=== PATIENT | female | born 2000 | race Caucasian/White ===

== ENCOUNTER 2019-11-11 11:32 | Emergency (ER) | payer BC, SELFPAY ==
[2019-11-11 11:40] VITALS: BP 120/77; PULSE 55; RESP 20; TEMP 36.6; O2SAT 100
[2019-11-11] MEDS: SODIUM CHLORIDE 0.9% IV 1,000 ML 999 ML IV CONT ×2 (12:04→13:31)
[2019-11-11 12:11] LABS: Basophils Percent Auto 0.2 % (0.2-1.2); Hematocrit 42.8 % (37.0-47.0); Hemoglobin 14.5 g/dL (12.0-15.0); Immature Granulocyte Absolute 0.03 K/mm3 (0.00-0.031); Immature Granulocyte Percent A 0.3 % (0-0.5); Lymphocytes Absolute Auto 1.71 K/mm3 (0.9-3.2); Lymphocytes Percent Auto 19.7 % (18.3-44.2); Mean Corpuscular HGB Conc 33.9 g/dl (32-36); Mean Corpuscular Hemoglobin 30.6 pg (26-34); Mean Corpuscular Volume 90.3 fl (80-100); Mean Platelet Volume 9.5 fl (7.4-10.4); Monocytes Absolute Auto 0.4 K/mm3 (0.1-0.6); Monocytes Percent Auto 4.5 % (2.6-8.5); Neutrophils Absolute Auto 6.6 K/mm3 (1.3-6.7); Neutrophils Percent Auto 75.3 % (45.5-73.1); Platelet Count Result 309 k/mm3 (150-375); Red Blood Count 4.74 M/mm3 (4.2-5.4); Red Cell Distribution Width 12.8 % (11.5-14.5); White Blood Count 8.7 K/mm3 (4.5-10.0)
[2019-11-11 12:24] LABS: Alanine Aminotransferase 14 U/L (4-35); Albumin Level 5.3 g/dL (3.5-5.1); Alkaline Phosphatase 74 U/L (38-126); Aspartate Amino Transferase 25 U/L (14-36); Bilirubin,Total 0.9 mg/dL (0.2-1.3); Blood Urea Nitrogen 13 mg/dL (7-17); Calcium 10.3 mg/dL (8.4-10.2); Carbon Dioxide 24 mmol/L (22-30); Chloride 101 mmol/L (98-107); Estimated CRCL calculation 81 ml/min; Estimated Glomerular Filt Rate > 60; Glucose 110 mg/dL (65-105); Lipase 108 U/L (23-300); Potassium 3.5 mmol/L (3.4-5.0); Sodium 136 mmol/L (137-145)
[2019-11-11] MEDS: FAMOTIDINE 20 MG/2 ML VIAL IV PUSH (13:08)
[2019-11-11] MEDS: ONDANSETRON INJ 4 MG/2 ML VIAL IV PUSH (13:08)
[2019-11-11] MEDS: LORAZEPAM INJ 2 MG/ML VIAL 1 MG IV PUSH (13:09)
[2019-11-11 13:27] LABS: Add Urine Microscopic? YES; Appearance Urine Clear (Clear); Bilirubin Urine Negative (Negative); Blood Urine 1+ (Negative); Color Urine Yellow (Yellow); Glucose Urine UA Negative (Negative); Ketones Urine 1+ mg/dL (Negative); Leukocyte Esterase Ur Negative LEU/UL (Negative); Mucus Urine Few /lpf; Nitrate Urine Negative (Negative); Protein Urine Negative (Negative); Specific Grav Ur 1.016 (1.001-1.035); Squamous Epithelial Cell Urine Rare /hpf (Few); WBC Urine 0-3 /hpf
--- NOTE | 2019-11-11 13:31 | ED.GENADULT ---
HPI - General Adult General Chief complaint: Abdominal Pain Stated complaint: ABD PAIN Time Seen by Provider: 11/11/19 11:35 Source: patient Mode of arrival: ambulatory Limitations: no limitations History of Present Illness HPI narrative: Patient is a 19-year-old female who presents to emergency department for evaluation of abdominal pain in the upper quadrants of the abdomen worse with p.o. intake for the last several days has had some intermittent nausea and vomiting. Patient notes similar occurrences in the past and was scheduled to see GI but has not done so yet. Patient started taking Pepcid again for symptoms with minimal improvement on arrival patient notes discomfort in the upper abdomen in the epigastric region. Related Data Allergies Allergy/AdvReac Type Severity Reaction Status Date / Time No Known Allergies Allergy Unverified 10/21/17 00:44 Review of Systems Review of Systems: All systems reviewed & are unremarkable except as noted in HPI and below PMFSH Social History Social History Gender identity (if verbalized by the patient): Female Exam Narrative: Exam Narrative: GENERAL: Well-appearing, well-nourished, and in no acute distress. HEAD: Normocephalic, atraumatic. EYES: PERRLA and EOMI. ENT: Nares clear, no rhinorrhea or epistaxis. Mucous membranes moist. CHEST: Clear to auscultation. No respiratory distress. No wheezes rales or rhonchi HEART: Regular rate and rhythm. No murmur heard. Normal peripheral pulses. ABDOMEN: Soft, nontender, nondistended EXTREMITIES: Normal range of motion. No edema. SKIN: Warm, dry, no rash. NEURO: No focal deficits. Alert and oriented x3. PSYCH: Normal mood and affect. Course Course Emergency Course: Patient in the room in no distress aware of case findings treatment plan and diagnosis with symptoms resolved felt appropriate for discharge home Vital Signs Vital signs: Vital Signs Temperature 97.8 F 11/11/19 11:40 Pulse Rate 55 L 11/11/19 11:40 Respiratory Rate 11/11/19 11:40 Blood Pressure 120/77 11/11/19 11:40 Pulse Oximetry 100 11/11/19 11:40 Temperature 97.8 F 11/11/19 11:40 Pulse Rate 55 L 11/11/19 11:40 Respiratory Rate 11/11/19 11:40 Blood Pressure 120/77 11/11/19 11:40 Pulse Oximetry 100 11/11/19 11:40 Medical Decision Making MDM Narrative Medical decision making narrative: Patient in the room in no distress aware of case findings treatment plan and diagnosis agreeing to follow-up as directed aware of case findings treatment plan and diagnosis afebrile nontoxic-appearing no distress. Patient will follow with GI specialist as instructed. Patient provided with reasons to return. Patient afebrile nontoxic-appearing no distress Vital Signs Vital Signs: Vital Signs Temperature 97.8 F 11/11/19 11:40 Pulse Rate 55 L 11/11/19 11:40 Respiratory Rate 11/11/19 11:40 Blood Pressure 120/77 11/11/19 11:40 Pulse Oximetry 100 11/11/19 11:40 Temperature 97.8 F 11/11/19 11:40 Pulse Rate 55 L 11/11/19 11:40 Respiratory Rate 11/11/19 11:40 Blood Pressure 120/77 11/11/19 11:40 Pulse Oximetry 100 11/11/19 11:40 Lab Data Result diagrams: 11/11/19 12:03 11/11/19 12:03 Labs: Lab Results 11/11/19 11/11/19 11/11/19 Range/Units 12:03 12:03 13:06 WBC 8.7 (4.5-10.0) K/mm3 RBC 4.74 (4.2-5.4) M/mm3 Hgb 14.5 (12.0-15.0) g/dL Hct 42.8 (37.0-47.0) % MCV 90.3 (80-100) fl MCH 30.6 (26-34) pg MCHC 33.9 (32-36) g/dl RDW 12.8 (11.5-14.5) % Plt Count 309 (150-375) k/mm3 MPV 9.5 (7.4-10.4) fl Immature Gran % (Auto) 0.3 (0-0.5) % Neut % (Auto) 75.3 H (45.5-73.1) % Lymph % (Auto) 19.7 (18.3-44.2) % [place] % (Auto) 4.5 (2.6-8.5) % Eos % (Auto) 0.0 (0-4.4) % Baso % (Auto) 0.2 (0.2-1.2) % Lymph # (Auto) 1.71 (0.9-3.2) K/mm3 [place]
[2019-11-11 14:46] VITALS: BP 117/65; PULSE 72; RESP 16; O2SAT 100
== END 2019-11-11 14:47 | disposition home or self-care (01) ==
PROVIDERS: Emergency Medicine Emergency Medical Services; Emergency Provider Emergency Medicine; PCP Pediatrics
DX: R10.9 Unspecified abdominal pain (principal)
CPT/HCPCS: 36415; 80053; 81001; 81025; 83690; 85025; 96361; 96374; 96375; 99284; J2060; J2405; J7030

== ENCOUNTER 2019-12-08 00:26 | Outpatient (CLI) | payer BC, SELFPAY ==
[2019-12-08 17:13] LABS: SARS-CoV-2 RNA PCR Negative
== END 2019-12-08 00:27 | disposition home or self-care (01) ==
LOC: ANHCOVIDDT 00:26
PROVIDERS: PCP Pediatrics; Visit Provider Internal Medicine Gastroenterology
DX: Z01.812 Encounter for preprocedural laboratory examination (principal); Z11.59 Encounter for screening for other viral diseases
CPT/HCPCS: 87635; C9803; U0003

== ENCOUNTER 2019-12-10 02:30 | Day surgery (SDC) | payer BC, SELFPAY ==
[2019-12-05 12:45] VITALS: BMI 20.3
[2019-12-10 09:32] VITALS: BP 98/66; PULSE 70; RESP 16; TEMP 36.6; O2SAT 100
--- NOTE | 2019-12-10 09:36 | WPDANESEPPF ---
Anes - Initial Pre Proc Eval Procedure: Operation Date: 12/10/19 10:30 Proposed Procedures p Esophagogastroduodenoscopy - Woo Velez MD Date/Time: 12/10/19 09:36 Surgeon: Woo Velez MD Pre Op Diagnosis: Epigastric Pain Patient Data Age: 19 Gender: F Height: 1.7 m Weight: 59 kg Allergies Allergy/AdvReac Type Severity Reaction Status Date / Time No Known Allergies Allergy Verified 12/10/19 09:31 Home Medications Medication Instructions Recorded Confirmed Type hydroxyzine pamoate [Vistaril] 25 mg PO QID PRN #7 cap 11/11/19 12/05/19 Rx hyoscyamine sulfate [Levsin] 0.125 mg PO TID PRN #10 tablet 11/11/19 12/05/19 Rx Patient hx anesthesia problems: none Family hx anesthesia problems: none [facility] Past Medical History Medical History (Updated 12/09/19 @ 09:11 by Shyam Robbins DO) Anxiety Social History Social History (Updated 12/10/19 @ 09:37 by Shyam Robbins DO) Tobacco type: e-cigarettes/vaping Substance use type: marijuana Last use: today 12/09 Gender identity (if verbalized by the patient): Female Anes - Eval Final PreProcedure Day of Procedure 12/10/19 09:36 Patient weight: normal Heart: regular rate and rhythm Lungs: clear to auscultation and normal air movement Airway: Mallampati scale class 1 Neurological: alert and oriented Last oral intake: >/= 8 hours ASA classification: II Emergent: no Anesthetic plan: proceed Anesthesia type and monitoring: general GIVS and standard monitoring Informed Consent: The patient's anesthetic plan and its attendant risks and benefits were discussed with the patient/family/POA. Questions were solicited and answers provided to the satisfaction of the patient/family/POA.
--- NOTE | 2019-12-10 09:43 | WPDGICN ---
Assessment and Plan Assessment and plan (1) Epigastric abdominal pain: Code(s): R10.13 - Epigastric pain Status: Acute Assessment and Plan: Patient has episodic recurrent epigastric pain. This been present for more than 1 year. Plan is to proceed with EGD. Additionally an ultrasound of the right upper quadrant be obtained. Further recommendations will be given after endoscopy. This is been poorly responsive to a trial of PPIs. (2) Anxiety: Code(s): F41.9 - Anxiety disorder, unspecified Status: Acute GI Consult Note Consult date/time: 12/10/19 09:43 HPI: Dionna Hairston is a 19 year old female Seen in evaluation at the request of Anai Magallon. Patient reports traveling to [place] 1 year ago. She subsequently she developed epigastric pain described as burning source she aid with belching. Symptoms have recurred often on symptoms often lasting weeks or months at a time when occurring. She denies any associated fever. She has noticed some mild improvement with Tums. Currently she takes omeprazole for the last 2-3 months with no change in symptoms. Past medical history is significant for some anxiety. Patient denies any weight loss. Review of Systems Review of Systems: All systems reviewed & are unremarkable except as noted in HPI and below PMFSH Past Medical History Medical History Anxiety Social History Social History Tobacco type: e-cigarettes/vaping Substance use type: marijuana Last use: today 12/09 Gender identity (if verbalized by the patient): Female Meds Home Medications and Allergies Home Medications Medication Instructions Recorded Confirmed Type hydroxyzine pamoate [Vistaril] 25 mg PO QID PRN #7 cap 11/11/19 12/05/19 Rx omeprazole 40 mg PO DAILY 12/10/19 12/10/19 History sertraline 25 mg PO DAILY 12/10/19 12/10/19 History Allergies Allergy/AdvReac Type Severity Reaction Status Date / Time No Known Allergies Allergy Verified 12/10/19 09:31 Vital Signs Vital Signs - 24 hr 12/10/19 09:32 Temperature 36.6 C Pulse Rate 70 Respiratory Rate 16 Blood Pressure 98/66 L Pulse Oximetry 100 Exam Narrative: Exam Narrative: Physical exam reveals patient to be alert. Vital signs stable. HEENT exam unremarkable. Lungs are clear to auscultation and percussion. Heart is without murmur or extra sounds. Abdominal exam bowel sounds present soft nontender with no hepatosplenomegaly. Digital external rectal exam deferred at this time.
[2019-12-10] MEDS: LACTATED RINGERS 1,000 ML 150 ML IV CONT (09:52)
[2019-12-10 10:55] VITALS: BP 84/53; PULSE 67; RESP 25; O2SAT 100
[2019-12-10 11:05] VITALS: BP 100/61; PULSE 67; RESP 25; O2SAT 100
[2019-12-10 11:23] VITALS: BP 102/68; PULSE 67; RESP 25; O2SAT 100
== END 2019-12-10 11:35 | disposition home or self-care (01) ==
PROVIDERS: PCP Pediatrics; Visit Provider Internal Medicine Gastroenterology
PROC: 0DJ08ZZ Inspection of Upper Intestinal Tract, Via Natural or Artificial Opening Endoscopic (ICD-10-PCS; CPT 43235; principal; 2019-12-10 10:30)
DX: R10.13 Epigastric pain (principal); F41.9 Anxiety disorder, unspecified; F17.290 Nicotine dependence, other tobacco product, uncomplicated; F12.90 Cannabis use, unspecified, uncomplicated
CPT/HCPCS: 43239; 87081; J2704; J7120

== ENCOUNTER 2019-12-15 07:52 | Outpatient (CLI) | payer BC, SELFPAY ==
--- NOTE | ~2019-12-15 | US_ITS ---
EXAMINATION: US right upper quadrant EXAM DATE: 12/15/2019 08:59 INDICATION: Epigastric pain. TECHNIQUE: Multiple grayscale and Doppler images of the abdomen right upper quadrant were obtained (nilda y a technologist who performed the scan) and subsequently reviewed. Comparison is made to prior exami nation from 02/13/2019. FINDINGS: The pancreatic head and body are normal in appearance. The pancreatic tail is not visualized. The l iver has normal echogenicity and contour. There are no focal liver lesions identified. There is no evidence of intrahepatic biliary duct dilation. Portal venous flow was seen in the hepatopedal, nor mal direction and has normal Doppler waveform. No right-sided hydronephrosis. Common bile duct measures 2 mm, which is normal. The gallbladder wall is normal in thickness, with ex pected amount of distention. No sonographic evidence of pericholecystic fluid. There is no cholelit hiases. Technologist performing exam reports patient did not demonstrate sonographic Andres's sign. Please note that this sign is less reliable in patients who have received pain medication. IMPRESSION: 1. Unremarkable abdominal ultrasound exam. Reviewed, dictated and finalized at location B.
== END 2019-12-15 07:53 | disposition home or self-care (01) ==
PROVIDERS: PCP Pediatrics; Visit Provider Internal Medicine Gastroenterology
DX: R10.13 Epigastric pain (principal)
CPT/HCPCS: 76705

== ENCOUNTER 2019-12-29 07:59 | Outpatient (CLI) | payer BC, SELFPAY ==
--- NOTE | ~2019-12-29 | XR_ITS ---
XR small bowel follow through DATE: 12/29/2019 10:36 INDICATION: Nausea and vomiting TECHNIQUE: Serial images of the abdomen were obtained after oral ingestion of barium. Spot images of the terminal ileum area. COMPARISON: None FINDINGS: There is normal transit of contrast material through the small bowel, contrast material cesilia esteban the colon within 1.5 hours. No stricture, mucosal fold thickening, ulceration, diverticulum or intraluminal mass lesion of the small bowel is evident. The terminal ileum area appears unremarkable. IMPRESSION: Normal examination Reviewed, dictated and finalized at Location A. Reviewed, dictated and finalized at location A. IMPRESSION: Normal examination
== END 2019-12-29 08:00 | disposition home or self-care (01) ==
PROVIDERS: PCP Pediatrics; Visit Provider Internal Medicine Gastroenterology
DX: R11.2 Nausea with vomiting, unspecified (principal)
CPT/HCPCS: 74250

== ENCOUNTER 2025-04-29 09:54 | Emergency (ER) | payer OTHER, BC, MEDICAID, SELFPAY ==
--- OUTSIDE RECORDS SUMMARY | 2025-02-13 03:45 | XMS_ITS ---
Author Organization [facility] [facility] Address [facility] [address] [facility] [address] [place] [address] Care Team Providers Care Exhibit Preparator Name Role Phone Clarice Peter Primary Care Provider Anai Bailey Unavailable [phone] REASON FOR VISIT Pt has a family emergency Social History Sex Assigned At : Social History Observation Description Sex Assigned At Female Encounters Encounter Location Date Provider Diagnosis [facility] [employer] [place] [address] [address] [facility] [address] [place] [address] 02/13/2025 Anai Arias Plan Of Treatment Next Appt Details Provider Name:Anai Arias , 05/01/2025 11:15:00 AM, [facility] [address] [facility] [address], [place], [address], Progress Notes * MORGAN KIMDOB: [birth year] (25 yo F)Acc No.[id number]:02/13/2025 Patient: Cuca DominguezLITOMORGAN Enrique Provider: CHLOE PINTO :2000 A ge:25 Y S ex:Female Date:02/13/2025 Phone: Address:[address] [place] [id number] Pcp:Clarice JHA Subjective: * Chief Complaints: * P t has a family emergency * Electronic signature of CHLOE Cordova on 04/29/2025 at 10:54 AM BURLAP BAG SEWER Sign off status: Pending * Provider: CHLOE PINTO Date: 0 02/13/2025 Generated for Howard kowalski/Felton/eTransmitting on: 1 06/29/2024 10:54 AM BURLAP BAG SEWER
--- OUTSIDE RECORDS SUMMARY | 2025-04-21 05:15 | XMS_ITS ---
Author Organization [facility] [employer] [facility] Address [facility] [address] [facility] [address] [place] [address] Care Team Providers Care Women'S Studies Lecturer Name Role Phone Clarice Peter Primary Care Provider Anai Bailey Unavailable [phone] REASON FOR VISIT Follow Up Social History Sex Assigned At : Social History Observation Description Sex Assigned At Female Encounters Encounter Location Date Provider Diagnosis [facility] [place] [address] [address] [facility] [address] [place] [address] 04/21/2025 Anai Arias Plan Of Treatment Next Appt Details Provider Name:Anai Arias , 05/01/2025 11:15:00 AM, [address], [facility] [address], [place], [address], Progress Notes * MORGAN KIMDOB: [birth year] (25 yo F)Acc No.[id number]:04/21/2025 Patient: MORGAN LUKE Provider: CHLOE PINTO :2000 A ge:25 Y S ex:Female Date:04/21/2025 Phone: Address:[address] [place], [place] [phone] Pcp:Clarice JHA Subjective: * Chief Complaints: * F ollow Up * Electronic signature of CHLOE Cordova on 04/29/2025 at 10:54 AM AVIATION PROJECT MANAGER Sign off status: Pending * Provider: CHLOE PINTO Date: 06/21/2024 Generated for Howard kowalski/Felton/eTransmitting on: 06/29/2024 10:54 AM AVIATION PROJECT MANAGER
--- NOTE | ~2025-04-29 | XR_ITS ---
EXAMINATION: XR finger 3rd RT min 2V DATE: 04/29/2025 11:52 INDICATION: Dog bite TECHNIQUE: Right middle finger were obtained. COMPARISON: None. IMPRESSION: No fracture lucency or radiopaque foreign bodies seen; no gross acute or aggressive bony or soft tissue process seen. Reviewed, dictated and finalized at location A. P MEDICINE PHYSICIAN IMPRESSION: No fracture lucency or radiopaque foreign bodies seen; no gross acu te or aggressive bony or soft tissue process seen.
[2025-04-29 10:07] VITALS: BP 139/75; PULSE 121; RESP 18; TEMP 36.8; O2SAT 100
--- OUTSIDE RECORDS SUMMARY | 2025-04-29 10:54 | XMS_ITS | Patient Health Record ---
Author Organization [facility] [employer] Address [address] [facility] [address] [place] [address] Care Team Providers Care Manager Analysis Name Role Phone Clarice Peter Primary Care Provider Anai Bailey Unavailable [phone] Collin Neely Unavailable [phone] Allergies No Known Allergies Results Component Value Reference Range Flag Notes Illicits Reviewed date:08/15/2024 04:23:57 PM Interpretation: Performing Lab:[address] [place] [address], Director - [id number] Notes/Report: An exception occurred while processing this report and so it has incomplete data. Please contact [employer] for assistance. THCCOOH >600 15.0 POSITIVE Not Medicated Inconsistent PCP NEGATIVE 20.0 ng/mL Not Medicated Consistent MDMA NEGATIVE 50.0 ng/mL Not Medicated Consistent MDEA NEGATIVE 50.0 ng/mL Not Medicated Consistent MDA NEGATIVE 50.0 ng/mL Not Medicated Consistent Cocaine Metabolite NEGATIVE 20.0 ng/mL Not Me dicated Consistent 6-KENJI NEGATIVE 10.0 ng/mL Not Medicated Consistent PDF Report [id number]_[email or web address] [id number] UDT Reviewed date:08/11/2024 11:46:39 AM Interpretation: Performing Lab: Notes/Report: Amphetamine (AMP) N 0 - 1000 ng/ml Buprenorphine (BUP) N 0 - 10 ng/ml Oxazepam (BZO) N 0 - 300 ng/ml Cocaine (SIM) N 0 - 300 ng/ml Methamphetamine (mAMP) N 0 - 300 ng/ml Methylenedioxymethamphetamin e (MDMA) N 0 - 500 ng/ml Morphine (MOP) N 0 - 25 ng/ml Methadone (MTD) N 0 - 300 ng/ml Oxycodone (OXY) N 0 - 300 ng/ml THC P 0 - 50 ng/ml x N 0 - 1000 ng/ml x N 0 - 1000 ng/ml x N 0 - 300 ng/ml x N 0 - 300 ng/ml x N 0 - 300 ng/ml Reason For Referral No Information Medications Medication SIG (Take, Route, Frequency, Duration) Notes Start Date End Date Status Amitriptyline HCl 50 MG Tablet TAKE 1 TABLET BY MOUTH NIGHTLY AT BEDTIME. Oral; Duration: 30 days Active hydrOXYzine HCl 10 MG Tablet 1 tablet as needed Orally Once a day; Duration: 30 day(s) 02/19/2025 Active Zoloft 100 MG Tablet 1 tablet Orally Onc e a day; Duration: 90 days Active busPIRone HCl 5 MG Tablet 1 tablet Orall y 3 times a day; Duration: 90 days 05/20/2025 Active Nurtec 75 MG Tablet Disintegrating TAKE 1 TABLET (75 MG TOTAL) BY MOUTH EVERY OTHER DAY. MAX OF 1 TABLET (75 MG) IN 24 HOURS. Oral; Duration: 30 Days Active hydrOXYzine Pamoate 50 MG Capsule 1 capsule Orally three times a day; Duration: 30 days Active Social History Tobacco Use: Social History Observation Description Date Details (start date - stop date) Current Smoker NA - NA Sex Assigned At : Social History Observation Description Sex Assigned At Female Social History Miscellaneous: Social Info Question Answer Notes Advance Care Planning Are you your own decision-maker Yes Do you have Power of Spine Supervisor for Health or [facility]? No Social History Social Info Question Answer Notes Household: Marital Status: Single Number of Adults in household: 3 Level of Education: Finished High School Drug/Alcohol: Social Info Question Answer Notes Drugs Have you used drugs other than those for medical reasons in the past 12 months? Yes Methamphetamine? No Crack? No LSD? No Ecstacy? No Prescription opiates? No Marijuana? Yes Ketamine? No PCP? No Is there a minor (18 years or younger) at risk at home? No Are you still using? Yes Do you want treatment? No AUDIT-C (Standard) Did you have a drink containing alcohol in the past year? 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) Marijuana use (F12.90) Active confirmed Problem Tobacco use (433605296) Vapes nicotine containing substance (Z72.0) Active confirmed Problem Hyperemesis (320342599) Hyperemesis (R11.10) Active confirmed Vital Signs Heart Rate 97 /min 02/19/2025 Respiratory Rate 20 /min 01/13/2025 Height-cm 172.72 cm 02/19/2025 Blood pressure diastolic 75 mm Hg 02/19/2025 Weight-kg 86.55 kg 02/19/2025 Height 68 in 02/19/2025 Blood pressure systolic 111 mm Hg 02/19/2025 Weight 190.8 lbs 02/19/2025 BMI 29.01 kg/m2 02/19/2025 Encounters Encounter Location Date Provider Diagnosis [facility], [place] [address] [facility] [address] [facility] [address] [place] [address] 08/11/2024 Collin Neely MARTA (generalized anxiety disorder) F41.1 ; Hyperemesis R11.10 ; Vapes nicotine containing substance Z72.0 and Marijuana use F12.90 [place] [address] [address] 01/13/2025 Anai Arias MARTA (generalized anxiety disorder) F41.1 ; Hyperemesis R11.10 ; Vapes nicotine containing substance Z72.0 and Marijuana use F12.90 [place] [address] [address] 02/19/2025 Anai Arias MARTA (generalized anxiety disorder) F41.1 ; Hyperemesis R11.10 ; Vapes nicotine containing substance Z72.0 and Marijuana use F12.90 Assessments Encounter Date Diagnosis (ICD Code) Assessment Notes Treatment Notes Treatment Clinical Notes Section Notes 08/11/2024 MARTA (generalized anxiety disorder) (ICD-10 - F41.1) 08/11/2024 Hyperemesis (ICD-10 - R11.10) 01/13/2025 MARTA (generalized anxiety disorder) (ICD-10 - F41.1) Generalized Anxiety Disorder: Care Instructions material was published, Learning About Generalized Anxiety Disorder material was published, Learning About Anxiety Disorders material was published Presently taking Zoloft 100 mg daily and Amitriptyline 50 mg (migraines) Vistaril 25 mg three times a day 1. Anxiety increase Vistaril 50 mg three times a day as needed- discuss and educated on may plan to decrease dose of Vistaril after Buspar is at therapuetic dose Zoloft 100 mg daily Add Buspar 5 mg three times a day educated on all rx 2. DEPRESSION Zoloft 100 mg daily refer to therapy- [facility] 3. vaping Smoking Education Do not smoke. Nicotine and other chemicals in cigarettes and cigars can cause lung damage. Ask your healthcare provider for information if you currently smoke and need help to quit. E-cigarettes or smokeless tobacco still contain nicotine. Talk to your healthcare provider before you use these products. education on decrease to stopping nicotine products and stop smoking hotline given -Quit - Yes [place] Tobacco Quitline Call a Smoking Quitline The National [facility] [place]'s Smoking Quitline, (0-436-77J-QUIT) Smokefree.gov, which connects you with your State's Quitline, (8-439-CHMVEYQ) Veterans Smoking Quitline, (6-646-YBQQUKR) 4. cannabis use with hyperemesis NO CONTROL SUBSTANCE PRESCRIBED BY [facility] Cannabis Use Education Recommend decrease/stop cannabis use as it can negatively impact mood, motivation, anxiety, sleep, focus/concentrati on/memory (vigilance, elasticity, processing and attention); can also contribute to development of psychosis. Recommend decrease/stop cannabis use as it may be negatively impacting mood, motivation, anxiety, sleep, focus; can also contribute to development of psychosis Cannabis/marijuan a information: http_s://nola.nih .gov/publications /drugfacts/cannab is-marijuana http_s://www.[employer]/gasper qoi-xul-wfzqtjgy- marijuana-adhd/ Suicide Safety plan Suicide Safety Plan Step 1: Warning Signs Yes Step 2: Internal Coping Strategies Yes Step 3: Social Contacts Who May Distract from the Crisis Yes Remember, in this step, the goal is distraction from suicidal thoughts and feelings. Yes Step 4 Professionals and Agencies to Contact for Help Yes 988 Suicide and Crisis Lifeline Yes Text HOME to 614191 Yes [place] [facility], Suicide & Crisis Hotline 0-839-100-HOPE(68 43) Yes [place] Suicide Prevention Lifeline 8335-811-QHFD (3878) Yes Step 5: Making the Environment Safe Yes Patient educated on all medications including potential benefits, side effects, risks. Educated on proper dosing schedule and importance of compliance educated on all medications, benefits, side effects and risk, and educated on depression, anxiety, and ADHD, mood d/o and educated on compliance of medications, metabolic and movement d/o education appointment's, continue therapy discussion with patient about course of treatment and patient instructions. education on serotonin syndrome Discussed and educated pt regarding benzodiazepines are generally not intended for prolonged use and that use can cause tolerance, dependence, depression, and associated memory issues including dementias (this list is not exhaustive). Benzodiazepine use is generally not recommended concurrently with pain medications and/or other controlled substances educated on all medications, benefits, side effects and risk, and educated on depression, anxiety, and ADHD, mood d/o and educated on compliance of medications, metabolic and movement d/o education appointment is, continue therapy discussion with patient about course of treatment and patient instructions. education on serotonin syndrome SSRI/SNRI side effects discussed including but not limited to, gastric upset, nausea, vomiting, diarrhea and/or constipation, weight changes, sexual side effects including loss of libido, increased suicidal thoughts/behavior s in children and young adults, and serotonin syndrome. Second generation antipsychotics (SGAs) have metabolic syndrome issues with weight gain, increase in prolactin, increased waist circumference, increased lipids, and increased glucose. Thus routine monitoring of weight, metabolic labs, etc. is indicated. A general rank ordering of antipsychotics that have the greatest to the least risk of metabolic effects is olanzapine, quetiapine, risperidone, ziprasidone, and aripiprazole. However, weight gain can occur with all of these drugs and considerable variability exists among patients receiving the same drug regarding the risk of metabolic effects. Anti-psychotic agents not only increase the risk of metabolic disorder, they also increase the risk of CVA, akathisia, and movement disorders including EPS or tardive dyskinesia (more common with first generation antipsychotics) and more. Sleep Hygeine- - KEEP YOUR BEDROOM DARK - GET LOTS OF NATURAL LIGHT IN THE MORNING. - DON'T WORK ON YOUR COMPUTER OR PHONE LATE AT NIGHT. - AVOID NAPS DURING THE DAY. - NO CAFFEINE 3 HOURS OR MORE AFTER WAKE UP TIME. - ONLY USE YOUR BED FOR SLEEPING - GET A RELAXATION ROUTINE BEFORE BED. - IF YOU CAN'T GET TO SLEEP AFTER 15 TO 30 MINUTES GET OUT OF BED AND DO SOMETHING RELAXING. - DON'T DRINK ALCOHOL IN THE EVENING or limit alcohol to 1 drink. Medication Management and Follow-Up - Plan: - Schedule follow-up appointments every 1-3 months to monitor the patient's response to the medication regimen. - Reinforce the importance of avoiding recreational drug use due to potential neurotoxicity and interactions with prescribed medications. 01/13/2025 Hyperemesis (ICD-10 - R11.10) Nausea and Vomiting: Care Instructions material was published Presently taking Zoloft 100 mg daily and Amitriptyline 50 mg (migraines) Vistaril 25 mg three times a day 1. Anxiety increase Vistaril 50 mg three times a day as needed- discuss and educated on may plan to decrease dose of Vistaril after Buspar is at therapuetic dose Zoloft 100 mg daily Add Buspar 5 mg three times a day educated on all rx 2. DEPRESSION Zoloft 100 mg daily refer to therapy- [facility] 3. vaping Smoking Education Do not smoke. Nicotine and other chemicals in cigarettes and cigars can cause lung damage. Ask your healthcare provider for information if you currently smoke and need help to quit. E-cigarettes or smokeless tobacco still contain nicotine. Talk to your healthcare provider before you use these products. education on decrease to stopping nicotine products and stop smoking hotline given Quit - Yes [place] Tobacco Quitline Call a Smoking Quitline The National Cancer [place]'s Smoking Quitline, (3-869-66B-QUIT) Smokefree.gov, which connects you with your State's Quitline, (5-841-WVOZPMF) Veterans Smoking Quitline, (7-001-OCLFZJL) 4. cannabis use with hyperemesis NO CONTROL SUBSTANCE PRESCRIBED BY [facility] Cannabis Use Education Recommend decrease/stop cannabis use as it can negatively impact mood, motivation, anxiety, sleep, focus/concentrati on/memory (vigilance, elasticity, processing and attention); can also contribute to development of psychosis. Recommend decrease/stop cannabis use as it may be negatively impacting mood, motivation, anxiety, sleep, focus; can also contribute to development of psychosis Cannabis/marijuan a information: http_s://nola.nih .gov/publications /drugfacts/cannab is-marijuana http_s://www.GreenWatt/canna nlx-tcb-thfatfhc- marijuana-adhd/ Suicide Safety plan Suicide Safety Plan Step 1: Warning Signs Yes Step 2: Internal Coping Strategies Yes Step 3: Social Contacts Who May Distract from the Crisis Yes Remember, in this step, the goal is distraction from suicidal thoughts and feelings. Yes Step 4 Professionals and Agencies to Contact for Help Yes 220 Suicide and Crisis Lifeline Yes Text HOME to 377236 Yes [place] [facility] Network, Suicide & Crisis Hotline 5-105-431-HOPE(09 44) Yes [place] Suicide Prevention Lifeline 0540-001-UUNY (5629) Yes Step 5: Making the Environment Safe Yes Patient educated on all medications including potential benefits, side effects, risks. Educated on proper dosing schedule and importance of compliance educated on all medications, benefits, side effects and risk, and educated on depression, anxiety, and ADHD, mood d/o and educated on compliance of medications, metabolic and movement d/o education appointment's, continue therapy discussion with patient about course of treatment and patient instructions. education on serotonin syndrome Discussed and educated pt regarding benzodiazepines are generally not intended for prolonged use and that use can cause tolerance, dependence, depression, and associated memory issues including dementias (this list is not exhaustive). Benzodiazepine use is generally not recommended concurrently with pain medications and/or other controlled substances educated on all medications, benefits, side effects and risk, and educated on depression, anxiety, and ADHD, mood d/o and educated on compliance of medications, metabolic and movement d/o education appointment is, continue therapy discussion with patient about course of treatment and patient instructions. education on serotonin syndrome SSRI/SNRI side effects discussed including but not limited to, gastric upset, nausea, vomiting, diarrhea and/or constipation, weight changes, sexual side effects including loss of libido, increased suicidal thoughts/behavior s in children and young adults, and serotonin syndrome. Second generation antipsychotics (SGAs) have metabolic syndrome issues with weight gain, increase in prolactin, increased waist circumference, increased lipids, and increased glucose. Thus routine monitoring of weight, metabolic labs, etc. is indicated. A general rank ordering of antipsychotics that have the greatest to the least risk of metabolic effects is olanzapine, quetiapine, risperidone, ziprasidone, and aripiprazole. However, weight gain can occur with all of these drugs and considerable variability exists among patients receiving the same drug regarding the risk of metabolic effects. Anti-psychotic agents not only increase the risk of metabolic disorder, they also increase the risk of CVA, akathisia, and movement disorders including EPS or tardive dyskinesia (more common with first generation antipsychotics) and more. Sleep Hygeine- - KEEP YOUR BEDROOM DARK - GET LOTS OF NATURAL LIGHT IN THE MORNING. - DON'T WORK ON YOUR COMPUTER OR PHONE LATE AT NIGHT. - AVOID NAPS DURING THE DAY. - NO CAFFEINE 3 HOURS OR MORE AFTER WAKE UP TIME. - ONLY USE YOUR BED FOR SLEEPING - GET A RELAXATION ROUTINE BEFORE BED. - IF YOU CAN'T GET TO SLEEP AFTER 15 TO 30 MINUTES GET OUT OF BED AND DO SOMETHING RELAXING. - DON'T DRINK ALCOHOL IN THE EVENING or limit alcohol to 1 drink. Medication Management and Follow-Up - Plan: - Schedule follow-up appointments every 1-3 months to monitor the patient's response to the medication regimen. - Reinforce the importance of avoiding recreational drug use due to potential neurotoxicity and interactions with prescribed medications. 02/19/2025 MARTA (generalized anxiety disorder) (ICD-10 - F41.1) Generalized Anxiety Disorder: Care Instructions material was published, Learning About Generalized Anxiety Disorder material was published, Learning About Anxiety Disorders material was published Presently taking Zoloft 100 mg daily and Amitriptyline 50 mg (migraines) Vistaril 25 mg three times a day 1. Anxiety decrease Vistaril 25 mg day as needed- patient reported takes PRN discuss and educated on all rx Zoloft 100 mg daily Buspar 5 mg three times a day educated on all rx 2. DEPRESSION Zoloft 100 mg daily refer to therapy- [facility] 3. vaping Smoking Education Do not smoke. Nicotine and other chemicals in cigarettes and cigars can cause lung damage. Ask your healthcare provider for information if you currently smoke and need help to quit. E-cigarettes or smokeless tobacco still contain nicotine. Talk to your healthcare provider before you use these products. education on decrease to stopping nicotine products and stop smoking hotline given 1-704-Quit - Yes [place] Tobacco Quitline Call a Smoking Quitline The National Cancer [place]'s Smoking Quitline, (3-785-24M-QUIT) Smokefree.gov, which connects you with your State's Quitline, (3-990-ABBGNUO) Veterans Smoking Quitline, (1-994-BBXCWCB) 4. cannabis use with hyperemesis - improved NO CONTROL SUBSTANCE PRESCRIBED BY [facility] Cannabis Use Education Recommend decrease/stop cannabis use as it can negatively impact mood, motivation, anxiety, sleep, focus/concentrati on/memory (vigilance, elasticity, processing and attention); can also contribute to development of psychosis. Recommend decrease/stop cannabis use as it may be negatively impacting mood, motivation, anxiety, sleep, focus; can also contribute to development of psychosis Cannabis/marijuan a information: http_s://nola.nih .gov/publications /drugfacts/cannab is-marijuana http_s://www.GreenWatt/cannjosafat ely-ycy-etygjosm- marijuana-adhd/ Suicide Safety plan Suicide Safety Plan Step 1: Warning Signs Yes Step 2: Internal Coping Strategies Yes Step 3: Social Contacts Who May Distract from the Crisis Yes Remember, in this step, the goal is distraction from suicidal thoughts and feelings. Yes Step 4 Professionals and Agencies to Contact for Help Yes 778 Suicide and Crisis Lifeline Yes Text HOME to 708427 Yes [place] [facility], Suicide & Crisis Hotline 7-020-539-HOPE(23 63) Yes [place] Suicide Prevention Lifeline 2094-368-HFEU (6489) Yes Step 5: Making the Environment Safe Yes Patient educated on all medications including potential benefits, side effects, risks. Educated on proper dosing schedule and importance of compliance educated on all medications, benefits, side effects and risk, and educated on depression, anxiety, and ADHD, mood d/o and educated on compliance of medications, metabolic and movement d/o education appointment's, continue therapy discussion with patient about course of treatment and patient instructions. education on serotonin syndrome Discussed and educated pt regarding benzodiazepines are generally not intended for prolonged use and that use can cause tolerance, dependence, depression, and associated memory issues including dementias (this list is not exhaustive). Benzodiazepine use is generally not recommended concurrently with pain medications and/or other controlled substances educated on all medications, benefits, side effects and risk, and educated on depression, anxiety, and ADHD, mood d/o and educated on compliance of medications, metabolic and movement d/o education appointment is, continue therapy discussion with patient about course of treatment and patient instructions. education on serotonin syndrome SSRI/SNRI side effects discussed including but not limited to, gastric upset, nausea, vomiting, diarrhea and/or constipation, weight changes, sexual side effects including loss of libido, increased suicidal thoughts/behavior s in children and young adults, and serotonin syndrome. Second generation antipsychotics (SGAs) have metabolic syndrome issues with weight gain, increase in prolactin, increased waist circumference, increased lipids, and increased glucose. Thus routine monitoring of weight, metabolic labs, etc. is indicated. A general rank ordering of antipsychotics that have the greatest to the least risk of metabolic effects is olanzapine, quetiapine, risperidone, ziprasidone, and aripiprazole. However, weight gain can occur with all of these drugs and considerable variability exists among patients receiving the same drug regarding the risk of metabolic effects. Anti-psychotic agents not only increase the risk of metabolic disorder, they also increase the risk of CVA, akathisia, and movement disorders including EPS or tardive dyskinesia (more common with first generation antipsychotics) and more. Sleep Hygeine- - KEEP YOUR BEDROOM DARK - GET LOTS OF NATURAL LIGHT IN THE MORNING. - DON'T WORK ON YOUR COMPUTER OR PHONE LATE AT NIGHT. - AVOID NAPS DURING THE DAY. - NO CAFFEINE 3 HOURS OR MORE AFTER WAKE UP TIME. - ONLY USE YOUR BED FOR SLEEPING - GET A RELAXATION ROUTINE BEFORE BED. - IF YOU CAN'T GET TO SLEEP AFTER 15 TO 30 MINUTES GET OUT OF BED AND DO SOMETHING RELAXING. - DON'T DRINK ALCOHOL IN THE EVENING or limit alcohol to 1 drink. Medication Management and Follow-Up - Plan: - Schedule follow-up appointments every 1-3 months to monitor the patient's response to the medication regimen. - Reinforce the importance of avoiding recreational drug use due to potential neurotoxicity and interactions with prescribed medications. 02/19/2025 Hyperemesis (ICD-10 - R11.10) Nausea and Vomiting: Care Instructions material was published Presently taking Zoloft 100 mg daily and Amitriptyline 50 mg (migraines) Vistaril 25 mg three times a day 1. Anxiety decrease Vistaril 25 mg day as needed- patient reported takes PRN discuss and educated on all rx Zoloft 100 mg daily Buspar 5 mg three times a day educated on all rx 2. DEPRESSION Zoloft 100 mg daily refer to therapy- [facility] 3. vaping Smoking Education Do not smoke. Nicotine and other chemicals in cigarettes and cigars can cause lung damage. Ask your healthcare provider for information if you currently smoke and need help to quit. E-cigarettes or smokeless tobacco still contain nicotine. Talk to your healthcare provider before you use these products. education on decrease to stopping nicotine products and stop smoking hotline given Quit - Yes [place] Tobacco Quitline Call a Smoking Quitline The National Cancer [place]'s Smoking Quitline, (9-912-02M-QUIT) Smokefree.gov, which connects you with your State's Quitline, (2-141-SBHEFZO) Veterans Smoking Quitline, (3-187-OSCPQMO) 4. cannabis use with hyperemesis - improved NO CONTROL SUBSTANCE PRESCRIBED BY [facility] Cannabis Use Education Recommend decrease/stop cannabis use as it can negatively impact mood, motivation, anxiety, sleep, focus/concentrati on/memory (vigilance, elasticity, processing and attention); can also contribute to development of psychosis. Recommend decrease/stop cannabis use as it may be negatively impacting mood, motivation, anxiety, sleep, focus; can also contribute to development of psychosis Cannabis/marijuan a information: http_s://nola.nih .gov/publications /drugfacts/cannab is-marijuana http_s://www.GreenWatt/canna hov-vcp-kzrsjehw- marijuana-adhd/ Suicide Safety plan Suicide Safety Plan Step 1: Warning Signs Yes Step 2: Internal Coping Strategies Yes Step 3: Social Contacts Who May Distract from the Crisis Yes Remember, in this step, the goal is distraction from suicidal thoughts and feelings. Yes Step 4 Professionals and Agencies to Contact for Help Yes 988 Suicide and Crisis Lifeline Yes Text HOME to 123195 Yes [place] [facility], Suicide & Crisis Hotline 5-550-284-HOPE(06 24) Yes National Suicide Prevention Lifeline 6232-376-CCUV (2592) Yes Step 5: Making the Environment Safe Yes Patient educated on all medications including potential benefits, side effects, risks. Educated on proper dosing schedule and importance of compliance educated on all medications, benefits, side effects and risk, and educated on depression, anxiety, and ADHD, mood d/o and educated on compliance of medications, metabolic and movement d/o education appointment's, continue therapy discussion with patient about course of treatment and patient instructions. education on serotonin syndrome Discussed and educated pt regarding benzodiazepines are generally not intended for prolonged use and that use can cause tolerance, dependence, depression, and associated memory issues including dementias (this list is not exhaustive). Benzodiazepine use is generally not recommended concurrently with pain medications and/or other controlled substances educated on all medications, benefits, side effects and risk, and educated on depression, anxiety, and ADHD, mood d/o and educated on compliance of medications, metabolic and movement d/o education appointment is, continue therapy discussion with patient about course of treatment and patient instructions. education on serotonin syndrome SSRI/SNRI side effects discussed including but not limited to, gastric upset, nausea, vomiting, diarrhea and/or constipation, weight changes, sexual side effects including loss of libido, increased suicidal thoughts/behavior s in children and young adults, and serotonin syndrome. Second generation antipsychotics (SGAs) have metabolic syndrome issues with weight gain, increase in prolactin, increased waist circumference, increased lipids, and increased glucose. Thus routine monitoring of weight, metabolic labs, etc. is indicated. A general rank ordering of antipsychotics that have the greatest to the least risk of metabolic effects is olanzapine, quetiapine, risperidone, ziprasidone, and aripiprazole. However, weight gain can occur with all of these drugs and considerable variability exists among patients receiving the same drug regarding the risk of metabolic effects. Anti-psychotic agents not only increase the risk of metabolic disorder, they also increase the risk of CVA, akathisia, and movement disorders including EPS or tardive dyskinesia (more common with first generation antipsychotics) and more. Sleep Hygeine- - KEEP YOUR BEDROOM DARK - GET LOTS OF NATURAL LIGHT IN THE MORNING. - DON'T WORK ON YOUR COMPUTER OR PHONE LATE AT NIGHT. - AVOID NAPS DURING THE DAY. - NO CAFFEINE 3 HOURS OR MORE AFTER WAKE UP TIME. - ONLY USE YOUR BED FOR SLEEPING - GET A RELAXATION ROUTINE BEFORE BED. - IF YOU CAN'T GET TO SLEEP AFTER 15 TO 30 MINUTES GET OUT OF BED AND DO SOMETHING RELAXING. - DON'T DRINK ALCOHOL IN THE EVENING or limit alcohol to 1 drink. Medication Management and Follow-Up - Plan: - Schedule follow-up appointments every 1-3 months to monitor the patient's response to the medication regimen. - Reinforce the importance of avoiding recreational drug use due to potential neurotoxicity and interactions with prescribed medications. 02/19/2025 Vapes nicotine containing substance (ICD-10 - Z72.0) Quitting Tobacco: Care Instructions material was published, Stopping Smokeless Tobacco Use: Care Instructions material was published, Deciding About Using Medicines To Quit Smoking material was published, Learning About Benefits of Quitting Smoking material was published Presently taking Zoloft 100 mg daily and Amitriptyline 50 mg (migraines) Vistaril 25 mg three times a day 1. Anxiety decrease Vistaril 25 mg day as needed- patient reported takes PRN discuss and educated on all rx Zoloft 100 mg daily Buspar 5 mg three times a day educated on all rx 2. DEPRESSION Zoloft 100 mg daily refer to therapy- [facility] 3. vaping Smoking Education Do not smoke. Nicotine and other chemicals in cigarettes and cigars can cause lung damage. Ask your healthcare provider for information if you currently smoke and need help to quit. E-cigarettes or smokeless tobacco still contain nicotine. Talk to your healthcare provider before you use these products. education on decrease to stopping nicotine products and stop smoking hotline given Quit - Yes [place] Tobacco Quitline Call a Smoking Quitline The [facility] [place]'s Smoking Quitline, (2-705-13A-QUIT) Smokefree.gov, which connects you with your State's Quitline, (9-252-UKNQKHQ) Veterans Smoking Quitline, (0-397-HASTGCC) 4. cannabis use with hyperemesis - improved NO CONTROL SUBSTANCE PRESCRIBED BY [facility] Cannabis Use Education Recommend decrease/stop cannabis use as it can negatively impact mood, motivation, anxiety, sleep, focus/concentrati on/memory (vigilance, elasticity, processing and attention); can also contribute to development of psychosis. Recommend decrease/stop cannabis use as it may be negatively impacting mood, motivation, anxiety, sleep, focus; can also contribute to development of psychosis Cannabis/marijuan a information: http_s://nola.nih .gov/publications /drugfacts/cannab is-marijuana http_s://mydeco.GreenWatt/gasper vbt-xcr-gdrsutyv- marijuana-adhd/ Suicide Safety plan Suicide Safety Plan Step 1: Warning Signs Yes Step 2: Internal Coping Strategies Yes Step 3: Social Contacts Who May Distract from the Crisis Yes Remember, in this step, the goal is distraction from suicidal thoughts and feelings. Yes Step 4 Professionals and Agencies to Contact for Help Yes 988 Suicide and Crisis Lifeline Yes Text HOME to 603190 Yes [place] [facility], Suicide & Crisis Hotline 9-626-935-HOPE(63 21) Yes [place] Suicide Prevention Lifeline 3477-970-JCEX (9362) Yes Step 5: Making the Environment Safe Yes Patient educated on all medications including potential benefits, side effects, risks. Educated on proper dosing schedule and importance of compliance educated on all medications, benefits, side effects and risk, and educated on depression, anxiety, and ADHD, mood d/o and educated on compliance of medications, metabolic and movement d/o education appointment's, continue therapy discussion with patient about course of treatment and patient instructions. education on serotonin syndrome Discussed and educated pt regarding benzodiazepines are generally not intended for prolonged use and that use can cause tolerance, dependence, depression, and associated memory issues including dementias (this list is not exhaustive). Benzodiazepine use is generally not recommended concurrently with pain medications and/or other controlled substances educated on all medications, benefits, side effects and risk, and educated on depression, anxiety, and ADHD, mood d/o and educated on compliance of medications, metabolic and movement d/o education appointment is, continue therapy discussion with patient about course of treatment and patient instructions. education on serotonin syndrome SSRI/SNRI side effects discussed including but not limited to, gastric upset, nausea, vomiting, diarrhea and/or constipation, weight changes, sexual side effects including loss of libido, increased suicidal thoughts/behavior s in children and young adults, and serotonin syndrome. Second generation antipsychotics (SGAs) have metabolic syndrome issues with weight gain, increase in prolactin, increased waist circumference, increased lipids, and increased glucose. Thus routine monitoring of weight, metabolic labs, etc. is indicated. A general rank ordering of antipsychotics that have the greatest to the least risk of metabolic effects is olanzapine, quetiapine, risperidone, ziprasidone, and aripiprazole. However, weight gain can occur with all of these drugs and considerable variability exists among patients receiving the same drug regarding the risk of metabolic effects. Anti-psychotic agents not only increase the risk of metabolic disorder, they also increase the risk of CVA, akathisia, and movement disorders including EPS or tardive dyskinesia (more common with first generation antipsychotics) and more. Sleep Hygeine- - KEEP YOUR BEDROOM DARK - GET LOTS OF NATURAL LIGHT IN THE MORNING. - DON'T WORK ON YOUR COMPUTER OR PHONE LATE AT NIGHT. - AVOID NAPS DURING THE DAY. - NO CAFFEINE 3 HOURS OR MORE AFTER WAKE UP TIME. - ONLY USE YOUR BED FOR SLEEPING - GET A RELAXATION ROUTINE BEFORE BED. - IF YOU CAN'T GET TO SLEEP AFTER 15 TO 30 MINUTES GET OUT OF BED AND DO SOMETHING RELAXING. - DON'T DRINK ALCOHOL IN THE EVENING or limit alcohol to 1 drink. Medication Management and Follow-Up - Plan: - Schedule follow-up appointments every 1-3 months to monitor the patient's response to the medication regimen. - Reinforce the importance of avoiding recreational drug use due to potential neurotoxicity and interactions with prescribed medications. 08/11/2024 Vapes nicotine containing substance (ICD-10 - Z72.0) -Quit - Yes [place] Tobacco Quitline Call a Smoking Quitline The [facility] [place]'s Smoking Quitline, (4-054-30T-SIOMARA T) Smokefree.gov, which connects you with your State's Quitline, (8-785-VUCWJXK ) Veterans Smoking Quitline, (3-020-TFNRRKJ ) 01/13/2025 Vapes nicotine containing substance (ICD-10 - Z72.0) Quitting Tobacco: Care Instructions material was published, Stopping Smokeless Tobacco Use: Care Instructions material was published, Deciding About Using Medicines To Quit Smoking material was published, Learning About Benefits of Quitting Smoking material was published Presently taking Zoloft 100 mg daily and Amitriptyline 50 mg (migraines) Vistaril 25 mg three times a day 1. Anxiety increase Vistaril 50 mg three times a day as needed- discuss and educated on may plan to decrease dose of Vistaril after Buspar is at therapuetic dose Zoloft 100 mg daily Add Buspar 5 mg three times a day educated on all rx 2. DEPRESSION Zoloft 100 mg daily refer to therapy- [facility] 3. vaping Smoking Education Do not smoke. Nicotine and other chemicals in cigarettes and cigars can cause lung damage. Ask your healthcare provider for information if you currently smoke and need help to quit. E-cigarettes or smokeless tobacco still contain nicotine. Talk to your healthcare provider before you use these products. education on decrease to stopping nicotine products and stop smoking hotline given Quit - Yes [place] Tobacco Quitline Call a Smoking Quitline The [facility] [place]'s Smoking Quitline, (9-285-02F-QUIT) Smokefree.gov, which connects you with your State's Quitline, (1-696-TMMNEFZ) Veterans Smoking Quitline, (3-930-FYHCTEQ) 4. cannabis use with hyperemesis NO CONTROL SUBSTANCE PRESCRIBED BY [facility] Cannabis Use Education Recommend decrease/stop cannabis use as it can negatively impact mood, motivation, anxiety, sleep, focus/concentrati on/memory (vigilance, elasticity, processing and attention); can also contribute to development of psychosis. Recommend decrease/stop cannabis use as it may be negatively impacting mood, motivation, anxiety, sleep, focus; can also contribute to development of psychosis Cannabis/marijuan a information: http_s://nola.nih .gov/publications /drugfacts/cannab is-marijuana http_s://www.GreenWatt/cannjosafat qop-yvb-mjqsepux- marijuana-adhd/ Suicide Safety plan Suicide Safety Plan Step 1: Warning Signs Yes Step 2: Internal Coping Strategies Yes Step 3: Social Contacts Who May Distract from the Crisis Yes Remember, in this step, the goal is distraction from suicidal thoughts and feelings. Yes Step 4 Professionals and Agencies to Contact for Help Yes 985 Suicide and Crisis Lifeline Yes Text HOME to 486404 Yes [facility], Suicide & Crisis Hotline 9-800-236-HOPE(46 44) Yes National Suicide Prevention Lifeline 8184-351-QJKO (2471) Yes Step 5: Making the Environment Safe Yes Patient educated on all medications including potential benefits, side effects, risks. Educated on proper dosing schedule and importance of compliance educated on all medications, benefits, side effects and risk, and educated on depression, anxiety, and ADHD, mood d/o and educated on compliance of medications, metabolic and movement d/o education appointment's, continue therapy discussion with patient about course of treatment and patient instructions. education on serotonin syndrome Discussed and educated pt regarding benzodiazepines are generally not intended for prolonged use and that use can cause tolerance, dependence, depression, and associated memory issues including dementias (this list is not exhaustive). Benzodiazepine use is generally not recommended concurrently with pain medications and/or other controlled substances educated on all medications, benefits, side effects and risk, and educated on depression, anxiety, and ADHD, mood d/o and educated on compliance of medications, metabolic and movement d/o education appointment is, continue therapy discussion with patient about course of treatment and patient instructions. education on serotonin syndrome SSRI/SNRI side effects discussed including but not limited to, gastric upset, nausea, vomiting, diarrhea and/or constipation, weight changes, sexual side effects including loss of libido, increased suicidal thoughts/behavior s in children and young adults, and serotonin syndrome. Second generation antipsychotics (SGAs) have metabolic syndrome issues with weight gain, increase in prolactin, increased waist circumference, increased lipids, and increased glucose. Thus routine monitoring of weight, metabolic labs, etc. is indicated. A general rank ordering of antipsychotics that have the greatest to the least risk of metabolic effects is olanzapine, quetiapine, risperidone, ziprasidone, and aripiprazole. However, weight gain can occur with all of these drugs and considerable variability exists among patients receiving the same drug regarding the risk of metabolic effects. Anti-psychotic agents not only increase the risk of metabolic disorder, they also increase the risk of CVA, akathisia, and movement disorders including EPS or tardive dyskinesia (more common with first generation antipsychotics) and more. Sleep Hygeine- - KEEP YOUR BEDROOM DARK - GET LOTS OF NATURAL LIGHT IN THE MORNING. - DON'T WORK ON YOUR COMPUTER OR PHONE LATE AT NIGHT. - AVOID NAPS DURING THE DAY. - NO CAFFEINE 3 HOURS OR MORE AFTER WAKE UP TIME. - ONLY USE YOUR BED FOR SLEEPING - GET A RELAXATION ROUTINE BEFORE BED. - IF YOU CAN'T GET TO SLEEP AFTER 15 TO 30 MINUTES GET OUT OF BED AND DO SOMETHING RELAXING. - DON'T DRINK ALCOHOL IN THE EVENING or limit alcohol to 1 drink. Medication Management and Follow-Up - Plan: - Schedule follow-up appointments every 1-3 months to monitor the patient's response to the medication regimen. - Reinforce the importance of avoiding recreational drug use due to potential neurotoxicity and interactions with prescribed medications. 02/19/2025 Marijuana use (ICD-10 - F12.90) Marijuana Use: Care Instructions material was published, Learning About Cannabis Use Disorder material was published Presently taking Zoloft 100 mg daily and Amitriptyline 50 mg (migraines) Vistaril 25 mg three times a day 1. Anxiety decrease Vistaril 25 mg day as needed- patient reported takes PRN discuss and educated on all rx Zoloft 100 mg daily Buspar 5 mg three times a day educated on all rx 2. DEPRESSION Zoloft 100 mg daily refer to therapy- [facility] 3. vaping Smoking Education Do not smoke. Nicotine and other chemicals in cigarettes and cigars can cause lung damage. Ask your healthcare provider for information if you currently smoke and need help to quit. E-cigarettes or smokeless tobacco still contain nicotine. Talk to your healthcare provider before you use these products. education on decrease to stopping nicotine products and stop smoking hotline given Quit - Yes [place] Tobacco Quitline Call a Smoking Quitline The [facility] [place]'s Smoking Quitline, (3-253-59G-QUIT) Smokefree.gov, which connects you with your [facility]'s Quitline, (2-924-NEYTUTQ) [facility] Smoking Quitline, (9-130-BTFORSV) 4. cannabis use with hyperemesis - improved NO CONTROL SUBSTANCE PRESCRIBED BY [facility] Cannabis Use Education Recommend decrease/stop cannabis use as it can negatively impact mood, motivation, anxiety, sleep, focus/concentrati on/memory (vigilance, elasticity, processing and attention); can also contribute to development of psychosis. Recommend decrease/stop cannabis use as it may be negatively impacting mood, motivation, anxiety, sleep, focus; can also contribute to development of psychosis Cannabis/marijuan a information: http_s://nola.nih .gov/publications /drugfacts/cannab is-marijuana http_s://www.GreenWatt/gasper skw-ese-zlpfngav- marijuana-adhd/ Suicide Safety plan Suicide Safety Plan Step 1: Warning Signs Yes Step 2: Internal Coping Strategies Yes Step 3: Social Contacts Who May Distract from the Crisis Yes Remember, in this step, the goal is distraction from suicidal thoughts and feelings. Yes Step 4 Professionals and Agencies to Contact for Help Yes 988 Suicide and Crisis Lifeline Yes Text HOME to 953472 Yes [facility], Suicide & Crisis Hotline 8-577-335-HOPE(82 82) Yes [place] Suicide Prevention Lifeline 9251-437-UTFF (3028) Yes Step 5: Making the Environment Safe Yes Patient educated on all medications including potential benefits, side effects, risks. Educated on proper dosing schedule and importance of compliance educated on all medications, benefits, side effects and risk, and educated on depression, anxiety, and ADHD, mood d/o and educated on compliance of medications, metabolic and movement d/o education appointment's, continue therapy discussion with patient about course of treatment and patient instructions. education on serotonin syndrome Discussed and educated pt regarding benzodiazepines are generally not intended for prolonged use and that use can cause tolerance, dependence, depression, and associated memory issues including dementias (this list is not exhaustive). Benzodiazepine use is generally not recommended concurrently with pain medications and/or other controlled substances educated on all medications, benefits, side effects and risk, and educated on depression, anxiety, and ADHD, mood d/o and educated on compliance of medications, metabolic and movement d/o education appointment is, continue therapy discussion with patient about course of treatment and patient instructions. education on serotonin syndrome SSRI/SNRI side effects discussed including but not limited to, gastric upset, nausea, vomiting, diarrhea and/or constipation, weight changes, sexual side effects including loss of libido, increased suicidal thoughts/behavior s in children and young adults, and serotonin syndrome. Second generation antipsychotics (SGAs) have metabolic syndrome issues with weight gain, increase in prolactin, increased waist circumference, increased lipids, and increased glucose. Thus routine monitoring of weight, metabolic labs, etc. is indicated. A general rank ordering of antipsychotics that have the greatest to the least risk of metabolic effects is olanzapine, quetiapine, risperidone, ziprasidone, and aripiprazole. However, weight gain can occur with all of these drugs and considerable variability exists among patients receiving the same drug regarding the risk of metabolic effects. Anti-psychotic agents not only increase the risk of metabolic disorder, they also increase the risk of CVA, akathisia, and movement disorders including EPS or tardive dyskinesia (more common with first generation antipsychotics) and more. Sleep Hygeine- - KEEP YOUR BEDROOM DARK - GET LOTS OF NATURAL LIGHT IN THE MORNING. - DON'T WORK ON YOUR COMPUTER OR PHONE LATE AT NIGHT. - AVOID NAPS DURING THE DAY. - NO CAFFEINE 3 HOURS OR MORE AFTER WAKE UP TIME. - ONLY USE YOUR BED FOR SLEEPING - GET A RELAXATION ROUTINE BEFORE BED. - IF YOU CAN'T GET TO SLEEP AFTER 15 TO 30 MINUTES GET OUT OF BED AND DO SOMETHING RELAXING. - DON'T DRINK ALCOHOL IN THE EVENING or limit alcohol to 1 drink. Medication Management and Follow-Up - Plan: - Schedule follow-up appointments every 1-3 months to monitor the patient's response to the medication regimen. - Reinforce the importance of avoiding recreational drug use due to potential neurotoxicity and interactions with prescribed medications. 01/13/2025 Marijuana use (ICD-10 - F12.90) Marijuana Use: Care Instructions material was published, Learning About Cannabis Use Disorder material was published Presently taking Zoloft 100 mg daily and Amitriptyline 50 mg (migraines) Vistaril 25 mg three times a day 1. Anxiety increase Vistaril 50 mg three times a day as needed- discuss and educated on may plan to decrease dose of Vistaril after Buspar is at therapuetic dose Zoloft 100 mg daily Add Buspar 5 mg three times a day educated on all rx 2. DEPRESSION Zoloft 100 mg daily refer to therapy- [facility] 3. vaping Smoking Education Do not smoke. Nicotine and other chemicals in cigarettes and cigars can cause lung damage. Ask your healthcare provider for information if you currently smoke and need help to quit. E-cigarettes or smokeless tobacco still contain nicotine. Talk to your healthcare provider before you use these products. education on decrease to stopping nicotine products and stop smoking hotline given Quit - Yes [place] Tobacco Quitline Call a Smoking Quitline The [facility] [place] Smoking Quitline, (0-771-53N-QUIT) Smokefree.gov, which connects you with your State's Quitline, (2-839-IEHYGWE) Veterans Smoking Quitline, (8-376-QFSXRQC) 4. cannabis use with hyperemesis NO CONTROL SUBSTANCE PRESCRIBED BY [facility] Cannabis Use Education Recommend decrease/stop cannabis use as it can negatively impact mood, motivation, anxiety, sleep, focus/concentrati on/memory (vigilance, elasticity, processing and attention); can also contribute to development of psychosis. Recommend decrease/stop cannabis use as it may be negatively impacting mood, motivation, anxiety, sleep, focus; can also contribute to development of psychosis Cannabis/marijuan a information: http_s://nola.nih .gov/publications /drugfacts/cannab is-marijuana http_s://www.GreenWatt/canna ejt-xcf-opyjkpan- marijuana-adhd/ Suicide Safety plan Suicide Safety Plan Step 1: Warning Signs Yes Step 2: Internal Coping Strategies Yes Step 3: Social Contacts Who May Distract from the Crisis Yes Remember, in this step, the goal is distraction from suicidal thoughts and feelings. Yes Step 4 Professionals and Agencies to Contact for Help Yes 118 Suicide and Crisis Lifeline Yes Text HOME to 551481 Yes [facility], Suicide & Crisis Hotline 0-414-421-HOPE(28 56) Yes National Suicide Prevention Lifeline 5030-079-XRFC (0258) Yes Step 5: Making the Environment Safe Yes Patient educated on all medications including potential benefits, side effects, risks. Educated on proper dosing schedule and importance of compliance educated on all medications, benefits, side effects and risk, and educated on depression, anxiety, and ADHD, mood d/o and educated on compliance of medications, metabolic and movement d/o education appointment's, continue therapy discussion with patient about course of treatment and patient instructions. education on serotonin syndrome Discussed and educated pt regarding benzodiazepines are generally not intended for prolonged use and that use can cause tolerance, dependence, depression, and associated memory issues including dementias (this list is not exhaustive). Benzodiazepine use is generally not recommended concurrently with pain medications and/or other controlled substances educated on all medications, benefits, side effects and risk, and educated on depression, anxiety, and ADHD, mood d/o and educated on compliance of medications, metabolic and movement d/o education appointment is, continue therapy discussion with patient about course of treatment and patient instructions. education on serotonin syndrome SSRI/SNRI side effects discussed including but not limited to, gastric upset, nausea, vomiting, diarrhea and/or constipation, weight changes, sexual side effects including loss of libido, increased suicidal thoughts/behavior s in children and young adults, and serotonin syndrome. Second generation antipsychotics (SGAs) have metabolic syndrome issues with weight gain, increase in prolactin, increased waist circumference, increased lipids, and increased glucose. Thus routine monitoring of weight, metabolic labs, etc. is indicated. A general rank ordering of antipsychotics that have the greatest to the least risk of metabolic effects is olanzapine, quetiapine, risperidone, ziprasidone, and aripiprazole. However, weight gain can occur with all of these drugs and considerable variability exists among patients receiving the same drug regarding the risk of metabolic effects. Anti-psychotic agents not only increase the risk of metabolic disorder, they also increase the risk of CVA, akathisia, and movement disorders including EPS or tardive dyskinesia (more common with first generation antipsychotics) and more. Sleep Hygeine- - KEEP YOUR BEDROOM DARK - GET LOTS OF NATURAL LIGHT IN THE MORNING. - DON'T WORK ON YOUR COMPUTER OR PHONE LATE AT NIGHT. - AVOID NAPS DURING THE DAY. - NO CAFFEINE 3 HOURS OR MORE AFTER WAKE UP TIME. - ONLY USE YOUR BED FOR SLEEPING - GET A RELAXATION ROUTINE BEFORE BED. - IF YOU CAN'T GET TO SLEEP AFTER 15 TO 30 MINUTES GET OUT OF BED AND DO SOMETHING RELAXING. - DON'T DRINK ALCOHOL IN THE EVENING or limit alcohol to 1 drink. Medication Management and Follow-Up - Plan: - Schedule follow-up appointments every 1-3 months to monitor the patient's response to the medication regimen. - Reinforce the importance of avoiding recreational drug use due to potential neurotoxicity and interactions with prescribed medications. 08/11/2024 Marijuana use (ICD-10 - F12.90) advised to stop marijuana use r/t hyperemesis 08/11/2024 Other Learning About Depression Screening material was printed 1. Anxiety - MARTA-7: 6 - Patient reports anxiety levels at 8-9 out of 10. - Exacerbated by recent stressors (pet illness, family deaths). - Plan: a. Prescribe hydroxyzine as needed, up to 3 times daily for anxiety and nausea. b. Educate on crisis prevention hotline (940). c. Advise ER visit if increased thoughts of suicide, self-harm, or feeling unsafe. 2. Depression - PHQ-9: 8 - Patient reports depression levels at 5 out of 10. - Currently on Zoloft 50 and amitriptyline 50. - Plan: a. Continue current medications. b. Monitor for changes in mood or symptoms. c. Encourage therapy or counseling if needed. 3. Sleep - Patient reports getting 8 hours of sleep per night. - Plan: Encourage consistent sleep schedule and good sleep hygiene. 4. Appetite - Patient reports issues with appetite today. - Plan: a. Monitor appetite. b. Encourage balanced diet. c. Consider further evaluation if issues persist. 5. Cannabis hyperemesis syndrome (CHS) - Patient reports daily marijuana use all day everyday. - Plan: a. Advise refraining from smoking marijuana due to potential hyperemesis. b. Monitor for changes in substance use. c. Provide resources for substance abuse treatment if needed. 6. Psychosocial Stressors - Patient reports recent stressors (pet illness, family deaths). - Plan: a. Encourage seeking support from friends, family, or mental health professional. b. Monitor for changes in mood or symptoms related to stressors. 7. Medical History - No prior history of allergies or surgical history. 01/13/2025 Other Hydroxyzine material was published, Buspirone material was published Presently taking Zoloft 100 mg daily and Amitriptyline 50 mg (migraines) Vistaril 25 mg three times a day 1. Anxiety increase Vistaril 50 mg three times a day as needed- discuss and educated on may plan to decrease dose of Vistaril after Buspar is at therapuetic dose Zoloft 100 mg daily Add Buspar 5 mg three times a day educated on all rx 2. DEPRESSION Zoloft 100 mg daily refer to therapy- KELI 3. vaping Smoking Education Do not smoke. Nicotine and other chemicals in cigarettes and cigars can cause lung damage. Ask your healthcare provider for information if you currently smoke and need help to quit. E-cigarettes or smokeless tobacco still contain nicotine. Talk to your healthcare provider before you use these products. education on decrease to stopping nicotine products and stop smoking hotline given Quit - Yes [place] Tobacco Quitline Call a Smoking Quitline The National [facility] [place]'s Smoking Quitline, (9-481-13H-QUIT) Smokefree.gov, which connects you with your State's Quitline, (8-578-BZSWNOV) Veterans Smoking Quitline, (7-750-JVMHKBL) 4. cannabis use with hyperemesis NO CONTROL SUBSTANCE PRESCRIBED BY [facility] Cannabis Use Education Recommend decrease/stop cannabis use as it can negatively impact mood, motivation, anxiety, sleep, focus/concentrati on/memory (vigilance, elasticity, processing and attention); can also contribute to development of psychosis. Recommend decrease/stop cannabis use as it may be negatively impacting mood, motivation, anxiety, sleep, focus; can also contribute to development of psychosis Cannabis/marijuan a information: http_s://nola.nih .gov/publications /drugfacts/cannab is-marijuana http_s://www.GreenWatt/canna bza-dld-sfwyfvhe- marijuana-adhd/ Suicide Safety plan Suicide Safety Plan Step 1: Warning Signs Yes Step 2: Internal Coping Strategies Yes Step 3: Social Contacts Who May Distract from the Crisis Yes Remember, in this step, the goal is distraction from suicidal thoughts and feelings. Yes Step 4 Professionals and Agencies to Contact for Help Yes 768 Suicide and Crisis Lifeline Yes Text HOME to 497104 Yes National Hopeline Network, Suicide & Crisis Hotline 6-196-207-HOPE(71 98) Yes [place] Suicide Prevention Lifeline 0923-238-GKOB (7171) Yes Step 5: Making the Environment Safe Yes Patient educated on all medications including potential benefits, side effects, risks. Educated on proper dosing schedule and importance of compliance educated on all medications, benefits, side effects and risk, and educated on depression, anxiety, and ADHD, mood d/o and educated on compliance of medications, metabolic and movement d/o education appointment's, continue therapy discussion with patient about course of treatment and patient instructions. education on serotonin syndrome Discussed and educated pt regarding benzodiazepines are generally not intended for prolonged use and that use can cause tolerance, dependence, depression, and associated memory issues including dementias (this list is not exhaustive). Benzodiazepine use is generally not recommended concurrently with pain medications and/or other controlled substances educated on all medications, benefits, side effects and risk, and educated on depression, anxiety, and ADHD, mood d/o and educated on compliance of medications, metabolic and movement d/o education appointment is, continue therapy discussion with patient about course of treatment and patient instructions. education on serotonin syndrome SSRI/SNRI side effects discussed including but not limited to, gastric upset, nausea, vomiting, diarrhea and/or constipation, weight changes, sexual side effects including loss of libido, increased suicidal thoughts/behavior s in children and young adults, and serotonin syndrome. Second generation antipsychotics (SGAs) have metabolic syndrome issues with weight gain, increase in prolactin, increased waist circumference, increased lipids, and increased glucose. Thus routine monitoring of weight, metabolic labs, etc. is indicated. A general rank ordering of antipsychotics that have the greatest to the least risk of metabolic effects is olanzapine, quetiapine, risperidone, ziprasidone, and aripiprazole. However, weight gain can occur with all of these drugs and considerable variability exists among patients receiving the same drug regarding the risk of metabolic effects. Anti-psychotic agents not only increase the risk of metabolic disorder, they also increase the risk of CVA, akathisia, and movement disorders including EPS or tardive dyskinesia (more common with first generation antipsychotics) and more. Sleep Hygeine- - KEEP YOUR BEDROOM DARK - GET LOTS OF NATURAL LIGHT IN THE MORNING. - DON'T WORK ON YOUR COMPUTER OR PHONE LATE AT NIGHT. - AVOID NAPS DURING THE DAY. - NO CAFFEINE 3 HOURS OR MORE AFTER WAKE UP TIME. - ONLY USE YOUR BED FOR SLEEPING - GET A RELAXATION ROUTINE BEFORE BED. - IF YOU CAN'T GET TO SLEEP AFTER 15 TO 30 MINUTES GET OUT OF BED AND DO SOMETHING RELAXING. - DON'T DRINK ALCOHOL IN THE EVENING or limit alcohol to 1 drink. Medication Management and Follow-Up - Plan: - Schedule follow-up appointments every 1-3 months to monitor the patient's response to the medication regimen. - Reinforce the importance of avoiding recreational drug use due to potential neurotoxicity and interactions with prescribed medications. 02/19/2025 Other Hydroxyzine material was published, Buspirone material was published Presently taking Zoloft 100 mg daily and Amitriptyline 50 mg (migraines) Vistaril 25 mg three times a day 1. Anxiety decrease Vistaril 25 mg day as needed- patient reported takes PRN discuss and educated on all rx Zoloft 100 mg daily Buspar 5 mg three times a day educated on all rx 2. DEPRESSION Zoloft 100 mg daily refer to therapy- KELI 3. vaping Smoking Education Do not smoke. Nicotine and other chemicals in cigarettes and cigars can cause lung damage. Ask your healthcare provider for information if you currently smoke and need help to quit. E-cigarettes or smokeless tobacco still contain nicotine. Talk to your healthcare provider before you use these products. education on decrease to stopping nicotine products and stop smoking hotline given Quit - Yes [place] Tobacco Quitline Call a Smoking Quitline The National [facility] [place]'s Smoking Quitline, (6-746-82M-QUIT) Smokefree.gov, which connects you with your State's Quitline, (9-449-FCFBVMP) Veterans Smoking Quitline, (0-806-ISUKCAC) 4. cannabis use with hyperemesis - improved NO CONTROL SUBSTANCE PRESCRIBED BY [facility] Cannabis Use Education Recommend decrease/stop cannabis use as it can negatively impact mood, motivation, anxiety, sleep, focus/concentrati on/memory (vigilance, elasticity, processing and attention); can also contribute to development of psychosis. Recommend decrease/stop cannabis use as it may be negatively impacting mood, motivation, anxiety, sleep, focus; can also contribute to development of psychosis Cannabis/marijuan a information: http_s://nola.nih .gov/publications /drugfacts/cannab is-marijuana http_s://www.GreenWatt/Mobakidsa ccj-xki-edfsgntc- marijuana-adhd/ Suicide Safety plan Suicide Safety Plan Step 1: Warning Signs Yes Step 2: Internal Coping Strategies Yes Step 3: Social Contacts Who May Distract from the Crisis Yes Remember, in this step, the goal is distraction from suicidal thoughts and feelings. Yes Step 4 Professionals and Agencies to Contact for Help Yes 438 Suicide and Crisis Lifeline Yes Text HOME to 382653 Yes National Hop[employer] Network, Suicide & Crisis Hotline 7-447-883-HOPE(20 39) Yes National Suicide Prevention Lifeline 7325-429-ORRT (3672) Yes Step 5: Making the Environment Safe Yes Patient educated on all medications including potential benefits, side effects, risks. Educated on proper dosing schedule and importance of compliance educated on all medications, benefits, side effects and risk, and educated on depression, anxiety, and ADHD, mood d/o and educated on compliance of medications, metabolic and movement d/o education appointment's, continue therapy discussion with patient about course of treatment and patient instructions. education on serotonin syndrome Discussed and educated pt regarding benzodiazepines are generally not intended for prolonged use and that use can cause tolerance, dependence, depression, and associated memory issues including dementias (this list is not exhaustive). Benzodiazepine use is generally not recommended concurrently with pain medications and/or other controlled substances educated on all medications, benefits, side effects and risk, and educated on depression, anxiety, and ADHD, mood d/o and educated on compliance of medications, metabolic and movement d/o education appointment is, continue therapy discussion with patient about course of treatment and patient instructions. education on serotonin syndrome SSRI/SNRI side effects discussed including but not limited to, gastric upset, nausea, vomiting, diarrhea and/or constipation, weight changes, sexual side effects including loss of libido, increased suicidal thoughts/behavior s in children and young adults, and serotonin syndrome. Second generation antipsychotics (SGAs) have metabolic syndrome issues with weight gain, increase in prolactin, increased waist circumference, increased lipids, and increased glucose. Thus routine monitoring of weight, metabolic labs, etc. is indicated. A general rank ordering of antipsychotics that have the greatest to the least risk of metabolic effects is olanzapine, quetiapine, risperidone, ziprasidone, and aripiprazole. However, weight gain can occur with all of these drugs and considerable variability exists among patients receiving the same drug regarding the risk of metabolic effects. Anti-psychotic agents not only increase the risk of metabolic disorder, they also increase the risk of CVA, akathisia, and movement disorders including EPS or tardive dyskinesia (more common with first generation antipsychotics) and more. Sleep Hygeine- - KEEP YOUR BEDROOM DARK - GET LOTS OF NATURAL LIGHT IN THE MORNING. - DON'T WORK ON YOUR COMPUTER OR PHONE LATE AT NIGHT. - AVOID NAPS DURING THE DAY. - NO CAFFEINE 3 HOURS OR MORE AFTER WAKE UP TIME. - ONLY USE YOUR BED FOR SLEEPING - GET A RELAXATION ROUTINE BEFORE BED. - IF YOU CAN'T GET TO SLEEP AFTER 15 TO 30 MINUTES GET OUT OF BED AND DO SOMETHING RELAXING. - DON'T DRINK ALCOHOL IN THE EVENING or limit alcohol to 1 drink. Medication Management and Follow-Up - Plan: - Schedule follow-up appointments every 1-3 months to monitor the patient's response to the medication regimen. - Reinforce the importance of avoiding recreational drug use due to potential neurotoxicity and interactions with prescribed medications. Plan Of Treatment Pending Test Test Name Order Date Test 08/11/2024 Next Appt Details Provider Name:Anai Arias , 05/01/2025 11:15:00 AM, [address], [facility] [address], [place], [address], Insurance Providers Payer Name Payer Address Payer Phone Subscriber Number Group Number Insured Name Patient Relationship to Insured Coverage Start Date Coverage End Date [facility] [address] [place] [address] [id number] ROSA KIM Child - Insured has Financial Responsibility Medical (General) History Medical History History ICD Code Past Psychiatric History: Anxiety Disord er,Panic Disorder abdominal aortic aneurysm: No atrial fibrillation: No chronic fatigue syndrome: No essential tremor: No hyperlipidemia: No hypertension: No Parkinson's disease: No restless leg syndrome: No stroke: No subdural hematoma: No type 1 diabetes mellitus: No type 2 diabetes mellitus: No vitamin B12 deficiency: No vitamin D deficiency: No
--- OUTSIDE RECORDS SUMMARY | 2025-04-29 10:55 | XMS_ITS | Clinical Summary ---
Author Organization [facility] Address [address] [place] [address] Care Team Providers Care Strategic Communications Specialist Name Role Phone Anai Magallon MD Primary Care Provider [phone] [facility],non-owned Affiliates and Associated Physician Practices is amultiple site organization consisting of ambulatory clinics and hospital sitesin [place], [place], [place] and [place]. This disclosure is being madepursuant to the Care Everywhere program and may not contain all information available regarding this patient. Last updated 18.[facility] Allergies No known active allergies Medications * Be aware that medications may not be up to date on this document. Alwaysverify current medications with the patient. medroxyPROGESTE Justus (DEPO-PROVERA) 150 MG/ML prefilled syringe TO ADMINISTER EVERY 90 DAYS 3 7 Active hyoscyamine 0.125 MG SL tablet Dissolve 0.125 mg under the tongue every 4 hours as needed for Spasms Active LORazepam (ATIVAN) 0.5 MG tabletIndicatio ns:Anxiety Take 1 tablet by mouth every 8 hours as needed for Anxiety Reasons: Feeling Anxious 45 tablet 0 Active omeprazole (PRILOSEC) 40 MG capsule TAKE 1 CAPSULE BY MOUTH EVERY DAY 30 capsule 2 0 Active sertraline (ZOLOFT) 50 MG tablet TAKE 1 TABLET BY MOUTH EVERY DAY 30 tablet 1 0 Active Active Problems Problem Noted Date Diagnosed Date Panic attacks 03/11/2018 Migraine without aura and wi thout status migrainosus, not intractable 09/21/2015 GERD without esophagitis 08/08/2014 Acne 11/28/2012 Immunizations Immunization Administration Dates Next Due DTaP VACCINE IM (6wk-6yrs) 2004,,1999,06/13,1999 HEP B VACCINE, PED/ADOL 08/24/2000,1999, HIB-PRP-T 4 DOSE 08/24/2000, 0,1999,04/11 Human Papilloma Virus Benjy valent Vaccine 12/30/2013,09/04/2013,07/01/2013 MENINGOCOCCAL ACWY (MCV4P) VAC IM 09/21/2015, MMR 2004,02/24/2000 POLIO IPV 2004, 0,1999,04/11 PPD 2004,02/24/2000 TDAP (7yrs+) 03/13/2014 VARICELLA 03/13/2014,05/25/2000 Family History Medical History Relation Name Comments Hypercholesterolemia Maternal Grandfather Anxiety Disorder Maternal Grandmother Nathan ic d/o Hypercholesterolemia Maternal Grandmother Hypertension Maternal Grandmother Anxiety Disorder Maternal Uncle Panic d/o Relation Name Status Comments Maternal Grandfather Maternal Grandmother Maternal Uncle Social History Tobacco Use Types Packs/Day Years Used Date Smoking Tobacco: Never Smokeless Tobacco: Never Alcohol Use Standard Drinks/Week Comments Not Asked 0 (1 standard drink = 0.6 oz pur e alcohol) Comments No Sex and Gender Information Value Date Recorded Sex Assigned at Not on file Legal 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 Gender Identity Not on file Sexual Orientation Not on file Last Filed Vital Signs Vital Sign Reading Time Taken Comments Blood Pressure 110/72 01/20/2020 10:42 AM CDT Pulse 104 01/20/2020 10:42 AM CDT Temperature 36.4 C (97.5 F) 01/20/2020 10:42 AM CDT Respiratory Rate - - Oxygen Saturation - - Inhaled Oxygen Concentration - - Weight 63.5 kg (140 lb) 01/20/2020 10:42 AM CDT Height 172.7 cm (5' 8) 01/20/2020 10:42 AM CDT Body Mass Index 21.29 01/20/2020 10:42 AM CDT Plan of Treatment Health Maintenance Due Date Last Done Comments HIV SCREENING 2014 HEPATITIS C SCREENING 02/04/2017 PAP SMEAR 02/10/2020 DTAP/TDAP/TD VACCINES (7 - Td or Tdap) 03/13/2024 03/13/2014, 2004, 08/24/2000, Additional history exists DEPRESSION SCREENING 06/18/2024 01/02/2020, 01/02/20 COVID-19 VACCINE ( season) 2025 INFLUENZA VACCINE (#1) 2025 ZOSTER VACCINE (1 of 2) 2049 HEPATITIS B VACCINE Completed 08/24/2000, 1999, 1999 HIB VACCINE Completed 08/24/2000, 11/1999, 1999, Additional history exists HPV VACCINE Completed 12/30/2013, 08/17, 07/01/2013 MENINGOCOCCAL GROUPS A/C/Y/W VACCINE Completed 09/21/2015, 12/30/2013 MENINGOCOCCAL (Group B) VACCINE SHARED DECISION-MAKING Aged Out No longer eligible based on patient's age to complete this topic PNEUMOCOCCAL VACCINE Aged Out No long er eligible based on patient's age to complete this topic Goals Goal Patient Goal Type Associated Problems Recent Progress Patient-Stated? Author SSLarissa Lifestyle: Use safety retraint in car Lifestyle On track( 015 2:29 PM CAREER SERVICES DIRECTOR) Ana Cazares RN Note: NEW CAR SEAT SAFETY RULES Seat belt laws should apply to all vehicle occupants Insurance WILIAM ANTHEM Care Teams Strategic Communications Specialist Relationship Specialty Start Date End Date Anai Magallon MD PCP - General Pediatrics 07/01/12
--- NOTE | 2025-04-29 12:36 | ED.GENADULT ---
HPI - General Adult General Chief complaint: Animal Bite Stated complaint: dog bite Time Seen by Provider: 04/29/25 11:59 History of Present Illness HPI narrative: 25-year-old female presented to the emergency department for evaluation for a finger injury patient was bit on the right ring finger at work by a dog that they were intubating. Dog is known to the [facility]. Dog is up-to-date on its immunizations. Patient states that she was bit at the finger nail bed of the ring finger and she did have a lot of bleeding at the time. Upon arrival emergency department there is no deformity to the finger nail bed, there is a small amount of dry blood on the finger but no active bleeding. No deformity to the finger. Patient declined any medications for pain control. Related Data Home Medications ?Medication ?Instructions ?Recorded ?Confirmed ?Last Taken ?Type omeprazole 40 mg capsule,delayed 40 mg PO DAILY 12/10/19 12/10/19 12/09/19 08:00 History release Allergies Allergy/AdvReac Type Severity Reaction Status Date / Time No Known Allergies Allergy Verified 04/29/25 09:57 Review of Systems Review of Systems: All systems reviewed & are unremarkable except as noted in HPI and below PMFSH Past Medical History Medical History (Updated 04/29/25 @ 12:39 by Rashawn Marks MD) Anxiety Social History Social History Tobacco type: e-cigarettes/vaping Substance use type: marijuana Last use: today 12/09 Gender identity (if verbalized by the patient): Female Exam Narrative: APPEARANCE: Well appearing, no pain, no distress, well-nourished. HEAD: normocephalic, atraumatic. EYES: PERRLA/EOMI, conjunctivae clear. NOSE: Normal no drainage EARS:TMS clear with good light reflex. THROAT: Pharynx clear, no exudate. NECK: Supple. No adenopathy, no masses. RESPIRATORY: Airway patent, respirations nonlabored. Clear to auscultation bilaterally, no rales, rhonchi, wheezing. CARDIOVASCULAR: Regular rate and rhythm without murmurs rubs or gallops. ABDOMINAL: Soft, nontender, nondistended, normal bowel sounds MUSCULOSKELETAL: Tenderness to right 4th finger at the nail bed, neurovascularly intact, strong cap refill, no subungual hematoma. NEURO: Alert. Cranial nerves II through XII intact. Good gait. Good coordination SKIN: Warm, dry. Normal Color Course Vital Signs Vital signs: Vital Signs Temperature 98.2 F 04/29/25 10:07 Pulse Rate 121 H 04/29/25 10:07 Respiratory Rate 18 04/29/25 10:07 Blood Pressure 139/75 04/29/25 10:07 Pulse Oximetry 100 04/29/25 10:07 Temperature 98.2 F 04/29/25 10:07 Pulse Rate 121 H 04/29/25 10:07 Respiratory Rate 18 04/29/25 10:07 Blood Pressure 139/75 04/29/25 10:07 Pulse Oximetry 100 04/29/25 10:07 Medical Decision Making MDM Narrative Medical decision making narrative: 25-year-old female present to the emergency department for evaluation for finger injury. X-ray was negative for fracture or dislocation. Patient has no wound requiring repair. Patient has no underlying medication allergies. Patient is being started on Augmentin in the emergency department. Patient will be discharged home on Augmentin. All questions concerns were addressed. Patient was educated on reasons to return to the emergency department. Differential Diagnosis Differential Diagnosis: finger fracture, sub ungal hematoma, finger laceration Vital Signs Vital Signs: Vital Signs Temperature 98.2 F 04/29/25 10:07 Pulse Rate 121 H 04/29/25 10:07 Respiratory Rate 18 04/29/25 10:07 Blood Pressure 139/75 04/29/25 10:07 Pulse Oximetry 100 04/29/25 10:07 Temperature 98.2 F 04/29/25 10:07 Pulse Rate 121 H 04/29/25 10:07 Respiratory Rate 18 04/29/25 10:07 Blood Pressure 139/75 04/29/25 10:07 Pulse Oximetry 100 04/29/25 10:07 Imaging Data My impression: X-ray: No acute fracture dislocation Radiologist's impression: Impressions Finger X-Ray 04/29/25 11:54 IMPRESSION: No fracture lucency or radiopaque foreign bodies seen; no gross acute or aggressive bony or soft tissue process seen. Discharge Plan Discharge Clinical Impression: Bite by animal, Finger injury Patient Disposition: Home Condition: Stable Instructions: Antibiotic Form, Animal Bite (ED) Additional Instructions: Antibiotic as directed until completed. Have close follow-up with your primary care physician. If you have any worsening symptoms then please call or return to the emergency department. Patient Language: Italian Prescriptions: New amoxicillin-pot clavulanate 875-125 mg tablet 1 tablet PO Q12H 7 Days Qty: 14 0RF No Action hydroxyzine pamoate [Vistaril] 25 mg capsule 25 mg PO QID PRN (Reason: anxiety) Qty: 7 0RF omeprazole 40 mg capsule,delayed release(DR/EC) 40 mg PO DAILY amitriptyline 25 mg tablet See Rx Instructions .ROUTE .COMPLEX Qty: 30 4RF Dose Instruction: TAKE 1 TABLET BY MOUTH AT BEDTIME Rx Instructions: TAKE 1 TABLET BY MOUTH AT BEDTIME Follow-up/Referrals: LOS,ARACELI MCKEON [Primary Care Provider]
--- OUTSIDE RECORDS SUMMARY | 2025-04-29 13:34 | XMS_ITS | Clinical Summary ---
Author Organization [facility] Address [address] [place] [address] Care Team Providers Care Nanotechnician Name Role Phone Anai Magallon MD Primary Care Provider [phone] Source Comments [facility],non-owned Affiliates and Associated Physician Practices is amultiple site organization consisting of ambulatory clinics and hospital sitesin [place], [place], [place] and [place]. This disclosure is being madepursuant to the Care Everywhere program and may not contain all information available regarding this patient. 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
== END 2025-04-29 12:47 | disposition home or self-care (01) ==
PROVIDERS: Emergency Provider Emergency Medicine; PCP Nurse Practitioner Family
DX: S61.254A Open bite of right ring finger without damage to nail, initial encounter (principal); W54.0XXA Bitten by dog, initial encounter; F17.290 Nicotine dependence, other tobacco product, uncomplicated; F41.9 Anxiety disorder, unspecified
CPT/HCPCS: 73140; 99283; A9270